=== PATIENT | male | born 1950 | race Caucasian/White ===

== ENCOUNTER 2017-09-09 11:19 | Emergency (ER) | payer BC ==
[~2017-09-09] VITALS: Ht 180.3 cm; Wt 115.0 kg
[~2017-09-09 11:19] MED LIST: ASPEC325 PO; CRS20 PO; MELO15TA3 PO; MULTTAB PO; RANI150T85 PO; SENNTAB23 PO
[2017-09-09 11:20] VITALS: TEMP 36.4; Ht 180.3 cm; Wt 115.0 kg
[2017-09-09] MEDS ORDERED: ONDANSETRON INJ 2 MG/ML 2 ML VIAL IV STA (11:32)
[2017-09-09] MEDS ORDERED: HYDROmorphone INJ 1 MG/ML SYR IV STA (11:32)
--- NOTE | 2017-09-09 12:16 | DIAGNOSTIC IMAGING REPORT ---
L HAND MIN 3 VIEWS ROUTINE CLINICAL HISTORY: Hand injury trauma. Pain. COMPARISON: None. DISCUSSION: Severe arthritic change. Mild soft tissue edema. Marginal erosions throughout. Chondrocalcinosis. Moderate generalized soft tissue edematous change. IMPRESSION: Severe arthritic change. No acute process. The above report was generated using voice recognition software. It may contain grammatical, syntax or spelling errors. Electronically signed by: Ben Moreno M.D. 09/09/2017 12:15 PM Dictated Date/Time: 09/09/2017 12:14 PM
--- NOTE | 2017-09-09 12:19 | DIAGNOSTIC IMAGING REPORT ---
R FEMUR 2 VIEWS ROUTINE CLINICAL HISTORY: Fall/femur injury trauma. Pain. COMPARISON: None. DISCUSSION: Total right hip arthroplasty good position. No evidence for fracture. Soft tissue edema overlying the mid to distal femur. IMPRESSION: No acute bony abnormality. Soft tissue edematous change. The above report was generated using voice recognition software. It may contain grammatical, syntax or spelling errors. Electronically signed by: Ben Moreno M.D. 09/09/2017 12:17 PM Dictated Date/Time: 09/09/2017 12:15 PM
--- NOTE | 2017-09-09 12:33 | EMERGENCY ROOM VISIT NOTE ---
ED Visit Note First contact with patient: 11:26 I have personally seen and evaluated the patient with the physician training and development assistant. I agree with the diagnostic/management decisions and have personally been involved in these decisions and agree with the diagnosis.
[2017-09-09] MEDS ORDERED: HYDR-5688 PO (12:35)
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
[2017-09-09] MEDS ORDERED: COLC1TAB25 (12:39)
[2017-09-09] MEDS ORDERED: ROSU40TA PO (12:39)
[2017-09-09] MEDS ORDERED: ASPECOTC PO (12:39)
[2017-09-09 13:20] VITALS: BP 98/57; PULSE 68; O2SAT 97
== END 2017-09-09 13:32 | disposition home or self-care (01) ==
LOC: C.EDB 11:20 → C.EDC 13:32
DX: S70.11XA Contusion of right thigh, initial encounter (principal); S60.012A Contusion of left thumb without damage to nail, initial encounter; W17.81XA Fall down embankment (hill), initial encounter; Y93.H9 Activity, other involving exterior property and land maintenance, building and construction; Z79.82 Long term (current) use of aspirin; Z79.899 Other long term (current) drug therapy